=== PATIENT | female | born 1970 | race African-American/Black ===

== ENCOUNTER 2023-11-22 00:13 | Observation (INO) | payer BC ==
[2023-11-22] MEDS ORDERED: LABETALOL HCL 200 MG TABLET (FP) ONE (01:15)
[2023-11-22] MEDS ORDERED: hydrALAZINE HCL 50 MG TABLET (FP) ONE (01:15)
[2023-11-22] MEDS ORDERED: NIFEdipine E.R 60 MG TABLET PO ONE (01:15)
[2023-11-22] MEDS ORDERED: ACETAMINOPHEN INJECTION 100 ML ONE (01:24)
[2023-11-22] MEDS ORDERED: METOCLOPRAMIDE HCL INJECTION 10 MG/2 ML VIAL ONE (01:24)
[2023-11-22] MEDS: hydrALAZINE HCL 50 MG TABLET (FP) PO ONE (01:29)
[2023-11-22] MEDS: NIFEdipine E.R 60 MG TABLET PO ONE (01:29)
[2023-11-22] MEDS: LABETALOL HCL 200 MG TABLET (FP) PO ONE (01:29)
[2023-11-22] MEDS: TORSEMIDE 20 MG TABLET (FP) PO ONE (01:29)
[2023-11-22] MEDS: ACETAMINOPHEN 1000 MG/100 ML BAG IVPB ONE (01:49)
[2023-11-22] MEDS: METOCLOPRAMIDE HCL INJECTION 10 MG/2 ML VIAL IVPUSH ONE (01:49)
[2023-11-22 01:55] LABS: BASO % 1.4 % (0-2.0); EOS % 4.3 % (0-4.5); HEMATOCRIT 24.9 % (32.4-45.2); HEMOGLOBIN 7.8 GM/dL (10.7-15.3); LYMPH % 16.3 % (8-40); MCH 26.8 pg (25.7-33.7); MCHC 31.3 g/dl (32.0-36.0); MEAN CELL VOLUME 85.8 fl (80-96); MEAN PLT VOLUME 10.2 fl (7.5-11.1); MONO % 9.1 % (3.8-10.2); NEUT % 68.9 % (42.8-82.8); PLATELET COUNT 209 10^3/uL (134-434); RBC 2.91 M/mm3 (3.60-5.2); RDW 14.9 % (11.6-15.6); WHITE BLOOD COUNT 7.7 K/mm3 (4.0-10.0)
[2023-11-22 01:57] LABS: EPI CELLS 10 /uL (0-25.1); HYALINE CASTS 0 /uL (0-3.1); PH,URINE 6.5 (5.0-8.0); URINE APPEARANCE CLEAR; URINE BACTERIA 281 /uL (0-1359); URINE BILIRUBIN NEGATIVE (NEGATIVE); URINE COLOR YELLOW; URINE GLUCOSE (UA) NEGATIVE (NEGATIVE); URINE KETONE NEGATIVE (NEGATIVE); URINE LEUK ESTERASE TRACE (NEGATIVE); URINE NITRITE NEGATIVE (NEGATIVE); URINE PROTEIN 2+ (NEGATIVE); URINE RBC 9 /uL (0-23.9); URINE UROBILINOGEN 0.2 mg/dL (0.2-1.0); URINE WBC 17 /uL (0-25.8)
[2023-11-22 02:17] LABS: POTASSIUM 4.4 mmol/L (3.5-5.1)
[2023-11-22 02:19] LABS: CALCIUM 8.3 mg/dL (8.5-10.1)
[2023-11-22 02:20] LABS: ALBUMIN 3.1 g/dl (3.4-5.0); BLOOD UREA NITROGEN 78.5 mg/dL (7-18)
[2023-11-22 02:24] LABS: BILIRUBIN,TOTAL 0.2 mg/dL (0.2-1); TOT PROT 6.6 g/dl (6.4-8.2)
[2023-11-22 02:28] LABS: N-TERMINAL BNP 6331.6 pg/ml (5-125)
[2023-11-22] MEDS: HEPARIN NA (PORCINE) 5,000 UNITS/ML 1ML VIAL SQ SCH (08:14)
[2023-11-22 09:16] LABS: HEMATOCRIT 26.3 % (32.4-45.2); HEMOGLOBIN 8.4 GM/dL (10.7-15.3); MCH 27.4 pg (25.7-33.7); MCHC 31.9 g/dl (32.0-36.0); MEAN PLT VOLUME 10.7 fl (7.5-11.1); PLATELET COUNT 211 10^3/uL (134-434); RBC 3.06 M/mm3 (3.60-5.2); RDW 14.8 % (11.6-15.6); WHITE BLOOD COUNT 6.8 K/mm3 (4.0-10.0)
[2023-11-22 09:18] LABS: POTASSIUM 4.6 mmol/L (3.5-5.1)
[2023-11-22 09:24] LABS: MAGNESIUM 2.2 mg/dL (1.8-2.4)
[2023-11-22 09:26] LABS: ALBUMIN 3.3 g/dl (3.4-5.0); BLOOD UREA NITROGEN 76.5 mg/dL (7-18); CALCIUM 8.8 mg/dL (8.5-10.1)
[2023-11-22 09:28] LABS: CREATININE 4.1 mg/dL (0.55-1.3)
[2023-11-22 09:29] LABS: PHOSPHOROUS 5.5 mg/dL (2.5-4.9)
[2023-11-22 09:31] LABS: BILIRUBIN,TOTAL 0.2 mg/dL (0.2-1); TOT PROT 6.9 g/dl (6.4-8.2)
[2023-11-22] MEDS: TORSEMIDE 20 MG TABLET (FP) PO SCH (09:53)
[2023-11-22] MEDS: NIFEdipine E.R 60 MG TABLET PO SCH (09:53)
[2023-11-22] MEDS: LABETALOL HCL 200 MG TABLET (FP) PO SCH (09:54)
[2023-11-22] MEDS ORDERED: hydrALAZINE HCL 50 MG TABLET (FP) PO SCH (10:00)
[2023-11-22 11:48] VITALS: BMI 23.1
[2023-11-22] MEDS: SEVELAMER CARBONATE 800 MG TAB (FP) PO ONE (13:30)
[2023-11-22 20:48] LABS: COCAINE, UR NEGATIVE (NEGATIVE); METHADONE, UR NEGATIVE (NEGATIVE); OPIATES, URI NEGATIVE (NEGATIVE); PHENCYCLIDINE,URINE NEGATIVE (NEGATIVE); URINE BENZODIAZEPINES NEGATIVE (NEGATIVE)
[2023-11-22 20:49] LABS: URINE AMPHETAMINES NEGATIVE (NEGATIVE)
[2023-11-22 20:50] LABS: URINE BARBITURATES NEGATIVE (NEGATIVE)
[2023-11-23] MEDS: ACETAMINOPHEN 325 MG TABLET (FP) PO PRN (06:52)
[2023-11-23 08:37] LABS: BASO % 1.6 % (0-2.0); EOS % 4.1 % (0-4.5); HEMATOCRIT 25.7 % (32.4-45.2); LYMPH % 23.2 % (8-40); MCH 27.2 pg (25.7-33.7); MCHC 31.4 g/dl (32.0-36.0); MEAN CELL VOLUME 86.7 fl (80-96); MEAN PLT VOLUME 11.1 fl (7.5-11.1); NEUT % 62.1 % (42.8-82.8); PLATELET COUNT 204 10^3/uL (134-434); RBC 2.96 M/mm3 (3.60-5.2); RDW 14.6 % (11.6-15.6); WHITE BLOOD COUNT 6.7 K/mm3 (4.0-10.0)
[2023-11-23 09:16] LABS: CALCIUM 8.5 mg/dL (8.5-10.1)
[2023-11-23 09:17] LABS: ALBUMIN 3.1 g/dl (3.4-5.0); BLOOD UREA NITROGEN 73.3 mg/dL (7-18); MAGNESIUM 2.1 mg/dL (1.8-2.4)
[2023-11-23 09:28] LABS: BILIRUBIN,TOTAL 0.2 mg/dL (0.2-1); CREATININE 3.9 mg/dL (0.55-1.3); PHOSPHOROUS 5.4 mg/dL (2.5-4.9); TOT PROT 6.4 g/dl (6.4-8.2)
[2023-11-23] MEDS: hydrALAZINE HCL 50 MG TABLET (FP) PO SCH (14:59)
[2023-11-23] MEDS: NICOTINE 14 MG/24 HOURS TOPICAL PATCH TD ONE (23:03)
[2023-11-24] MEDS: ACETAMINOPHEN 1000 MG/100 ML BAG IVPB ONE (07:58)
[2023-11-24] MEDS: LABETALOL HCL 200 MG TABLET (FP) PO SCH (08:25)
[2023-11-24] MEDS: NIFEdipine E.R. 30 MG TABLET PO SCH (10:19)
[2023-11-24 11:28] LABS: CALCIUM 8.6 mg/dL (8.5-10.1)
[2023-11-24 11:29] LABS: BLOOD UREA NITROGEN 76.1 mg/dL (7-18); MAGNESIUM 2.1 mg/dL (1.8-2.4)
[2023-11-24 11:32] LABS: CREATININE 3.6 mg/dL (0.55-1.3)
[2023-11-24] MEDS: hydrALAZINE HCL 20 MG/ML VIAL IVPUSH ONE ×2 (15:25→17:46)
[2023-11-24] MEDS: NIFEdipine E.R 60 MG TABLET PO SCH (21:57)
[2023-11-25 08:28] LABS: HEMATOCRIT 28.9 % (32.4-45.2); HEMOGLOBIN 9.2 GM/dL (10.7-15.3); MCH 27.2 pg (25.7-33.7); MCHC 31.8 g/dl (32.0-36.0); MEAN CELL VOLUME 85.4 fl (80-96); MEAN PLT VOLUME 10.7 fl (7.5-11.1); PLATELET COUNT 214 10^3/uL (134-434); RBC 3.39 M/mm3 (3.60-5.2); RDW 14.4 % (11.6-15.6); WHITE BLOOD COUNT 5.3 K/mm3 (4.0-10.0)
[2023-11-25 08:40] LABS: POTASSIUM 5.6 mmol/L (3.5-5.1)
[2023-11-25 08:45] LABS: CALCIUM 8.9 mg/dL (8.5-10.1)
[2023-11-25 08:46] LABS: ALBUMIN 3.3 g/dl (3.4-5.0); BLOOD UREA NITROGEN 76.3 mg/dL (7-18); MAGNESIUM 2.1 mg/dL (1.8-2.4)
[2023-11-25 08:49] LABS: CREATININE 3.7 mg/dL (0.55-1.3); PHOSPHOROUS 5.4 mg/dL (2.5-4.9)
[2023-11-25 08:51] LABS: BILIRUBIN,TOTAL 0.3 mg/dL (0.2-1); TOT PROT 7.2 g/dl (6.4-8.2)
[2023-11-25] MEDS: SODIUM ZIRCONIUM CYCLOSILICATE (LOKELMA) 5 GM PACKET PO SCH (09:58)
[2023-11-25] MEDS: hydrALAZINE HCL 20 MG/ML VIAL IVPUSH PRN (20:47)
[2023-11-25] MEDS: NIFEdipine E.R 60 MG TABLET PO SCH (22:29)
[2023-11-26 01:08] VITALS: RESP 18
[2023-11-26] MEDS: hydrALAZINE HCL 20 MG/ML VIAL IVPUSH ONE (03:09)
[2023-11-26 08:18] LABS: POTASSIUM 5.7 mmol/L (3.5-5.1)
[2023-11-26 08:20] LABS: CALCIUM 8.8 mg/dL (8.5-10.1)
[2023-11-26 08:21] LABS: ALBUMIN 3.1 g/dl (3.4-5.0); BLOOD UREA NITROGEN 69.8 mg/dL (7-18)
[2023-11-26 08:24] LABS: CREATININE 3.6 mg/dL (0.55-1.3)
[2023-11-26 08:25] LABS: BILIRUBIN,TOTAL 0.3 mg/dL (0.2-1)
[2023-11-26 08:26] LABS: BASO % 0.8 % (0-2.0); EOS % 4.4 % (0-4.5); HEMATOCRIT 26.4 % (32.4-45.2); HEMOGLOBIN 8.3 GM/dL (10.7-15.3); LYMPH % 30.2 % (8-40); MCHC 31.3 g/dl (32.0-36.0); MEAN CELL VOLUME 86.2 fl (80-96); MEAN PLT VOLUME 10.7 fl (7.5-11.1); MONO % 9.9 % (3.8-10.2); NEUT % 54.7 % (42.8-82.8); PLATELET COUNT 193 10^3/uL (134-434); RBC 3.06 M/mm3 (3.60-5.2); RDW 14.7 % (11.6-15.6); TOT PROT 6.6 g/dl (6.4-8.2); WHITE BLOOD COUNT 5.4 K/mm3 (4.0-10.0)
[2023-11-26 10:47] VITALS: PULSE 64
[2023-11-26] MEDS: SODIUM ZIRCONIUM CYCLOSILICATE (LOKELMA) 5 GM PACKET PO ONE ×2 (11:57→12:50)
[2023-11-26 14:46] VITALS: BP 130/82
[2023-11-26 15:36] VITALS: TEMP 98.2
[2023-11-27] MEDS ORDERED: SODIUM ZIRCONIUM CYCLOSILICATE (LOKELMA) 5 GM PACKET PO SCH (10:00)
== END 2023-11-26 18:02 | disposition home or self-care (01) ==
LOC: JER 00:13 → JERBED 03:39 → UNDOADMOB 03:39 → INTOOBSV 03:39 → J4W 07:34 → JERBED 07:34 → J4W 11-23 09:12 → JERBED 11-23 09:12
PROVIDERS: ADMIT Student in an Organized Health Care Education/Training Program; ATTEND Internal Medicine
PROC: 3E033NZ Introduction of Analgesics, Hypnotics, Sedatives into Peripheral Vein, Percutaneous Approach (ICD-10-PCS; principal; 2023-11-23)
PROC: 3E023GC Introduction of Other Therapeutic Substance into Muscle, Percutaneous Approach (ICD-10-PCS; 2023-11-23)
PROC: 3E033GC Introduction of Other Therapeutic Substance into Peripheral Vein, Percutaneous Approach (ICD-10-PCS; 2023-11-23)
DX: I16.0 Hypertensive urgency (principal); F14.90 Cocaine use, unspecified, uncomplicated; F12.90 Cannabis use, unspecified, uncomplicated; F17.200 Nicotine dependence, unspecified, uncomplicated; J42 Unspecified chronic bronchitis; R79.89 Other specified abnormal findings of blood chemistry
CPT/HCPCS: 36415; 70450-TC; 71045-TC-FY; 76775-TC; 80048; 80053; 80305; 80307; 81003; 81025; 82728; 83010; 83540; 83550; 83735; 83880; 84100; 84484; 84703; 85025; 85027; 85045; 87086; 93005; 93010; 93306-TC; 96372; 96374; 96375; 96376; 99285-25; G0378; J0131; J1644